=== PATIENT | female | born 2005 | race African-American/Black ===

== ENCOUNTER 2025-03-18 20:22 | Emergency (ER) | payer MEDICAID ==
[~2025-03-18] VITALS: Ht 170.2 cm; Wt 53.1 kg
[2025-03-18 20:16] VITALS: O2SAT 99
[2025-03-18 20:30] VITALS: O2SAT 100
[2025-03-18] MEDS ORDERED: ALBUTEROL FS 2.5 MG/3 ML VIAL.NEB ONE ×2 (21:13→22:31)
[2025-03-18] MEDS ORDERED: IPRATROPIUM NEB FS 0.5 MG/2.5 ML AMPUL.NEB ONE (21:13)
[2025-03-18] MEDS: ALBUTEROL FS 2.5 MG/3 ML VIAL.NEB NEB ONE ×2 (21:17→22:34)
[2025-03-18] MEDS: IPRATROPIUM NEB FS 0.5 MG/2.5 ML AMPUL.NEB NEB ONE (21:17)
[2025-03-18 21:19] VITALS: O2SAT 99
[2025-03-18] MEDS ORDERED: METH4TAB17 PO (21:40)
[2025-03-18] MEDS ORDERED: ALBU18HF2 INH (21:40)
[2025-03-18 22:35] VITALS: O2SAT 98; O2SAT 99
[2025-03-18 22:40] VITALS: O2SAT 100
[2025-03-18 22:45] VITALS: BP 120/66; TEMP 98.2; O2SAT 100
== END 2025-03-18 22:46 | disposition home or self-care (01) ==
LOC: ER 20:33
DX: J45.901 Unspecified asthma with (acute) exacerbation (principal); R05.9 Cough, unspecified; R68.83 Chills (without fever); I49.8 Other specified cardiac arrhythmias
CPT/HCPCS: 99285; 71045; 93005; 94640; J7512